=== PATIENT | male | born 1980 | race Caucasian/White ===

== ENCOUNTER 2021-04-30 12:22 | Emergency (ER) | payer SELFPAY ==
--- NOTE | ~2021-04-30 | XR_ITS ---
EXAMINATION: XR wrist RT min 3V EXAM DATE: 04/30/2021 12:39 INDICATION: NKI,Pos Pain Between Radius And Ulna, repetitive Motion. TECHNIQUE: Right wrist frontal, frontal with ulnar deviation, oblique and lateral projections obtain ed and reviewed. There is no prior study for comparison. FINDINGS: Right wrist scapholunate joint space is maintained. There are no bony erosions identified. There are no acute fractures or dislocations identified. There is no subcutaneous gas. The soft tis gloria is unremarkable. There are no radiopaque foreign bodies. IMPRESSION: 1. Unremarkable right wrist exam. Reviewed, dictated and finalized at location A.
--- NOTE | 2021-04-30 12:23 | ED.UPPEXIN ---
HPI - Extremity Injury (Upper) General Chief Complaint: Extremity Injury, Upper Stated Complaint: right wrist pain Time Seen by Provider: 04/30/21 12:22 Source: patient and RN notes reviewed History of Present Illness HPI narrative: Patient is a 41-year-old male who presents the urgent care with complaints of right wrist pain. Patient states is been ongoing for approximately 5 weeks. Patient denies of any injury or trauma to the wrist. 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 States that he noticed increased pain after bull riding a couple weeks ago. Patient has not taken anything [id number] for his pain. No other acute complaints. No acute distress noted. Patient read the plan of care. Some parts of this dictation were generated by voice recognition software and may contain typographical and/or grammatical inaccuracies. Related Data Allergies Allergy/AdvReac Type Severity Reaction Status Date / Time No Known Allergies Allergy Verified 04/30/21 12:37 Review of Systems Review of Systems: CONSTITUTIONAL: Denies fever, chills, or sweats. EYES: Denies visual changes, redness, or discharge. ENT: Denies rhinorrhea, congestion, sore throat, or otalgia. CARDIOVASCULAR: Denies chest pain, palpitations, or edema. RESPIRATORY: Denies cough or dyspnea. GASTROINTESTINAL: Denies abdominal pain, nausea, vomiting, or diarrhea. GENITOURINARY: Denies dysuria or hematuria. SKIN: Denies rash or itching. MUSCULOSKELETAL: Reports of right wrist pain NEUROLOGIC: Denies headache, numbness, or weakness. All other systems reviewed are negative, except as documented in HPI. PMFSH Comments At the time of my signature, I reviewed and agree with the nursing past medical, surgical, social, and family history. There is no relevant family history pertinent to the patient complaint. Exam Narrative: GENERAL: This is a well-nourished, well-developed patient, in no apparent distress. HEAD: normocephalic, atraumatic. EYES: PERRL. Sclera clear/white. Vision is grossly intact. EARS: External ears normal NOSE: External nose normal with no obvious nasal discharge, nares without redness, no rhinorrhea. THROAT: Mucous membranes moist NECK: Neck supple CARDIOVASCULAR: Regular rate and rhythm without murmurs, gallops, or rubs. RESPIRATORY: Clear to auscultation. Breath sounds equal bilaterally. No wheezes, rales, or rhonchi. SKIN: warm, intact with no suspicious lesions or rash, good texture and turgor. NEURO: awake, alert, and oriented to person, place and time. There were no obvious focal neurologic abnormalities. EXTREMITIES: Range of motion to right upper extremity within normal limits. Mild wrist tenderness to the ulnar aspect with very mild edema. No obvious deformity or fracture noted. Positive strong right radial pulse with capillary refill less than 2 seconds. Course Vital Signs Vital signs: Vital Signs Temperature 98.7 F 04/30/21 12:25 Pulse Rate 76 04/30/21 12:25 Respiratory Rate 18 04/30/21 12:25 Blood Pressure 145/77 H 04/30/21 12:25 Pulse Oximetry 99 04/30/21 12:25 Temperature 98.7 F 04/30/21 12:25 Pulse Rate 76 04/30/21 12:25 Respiratory Rate 18 04/30/21 12:25 Blood Pressure 145/77 H 04/30/21 12:25 Pulse Oximetry 99 04/30/21 12:25 Reviewed-patient is informed that they may have pre-hypertension or hypertension based on a blood pressure reading in the department. I recommend the patient call the primary care provider listed on their discharge instructions or a physician of their choice this week to arrange follow-up for further evaluation of possible pre-hypertension or hypertension. MDM - Extremity Injury (Upper) MDM Narrative Medical decision making narrative: Reviewed x-ray results with the patient. He is aware that x-ray was normal without any notable fracture or deformity. Symptoms are likely related to tendinitis due to your repetitive motion for your job. Advised the patient to wear a w
[2021-04-30 12:25] VITALS: BP 145/77; PULSE 76; RESP 18; TEMP 37.1; O2SAT 99
== END 2021-04-30 13:05 | disposition home or self-care (01) ==
PROVIDERS: Emergency Provider Nurse Practitioner Family; PCP Internal Medicine
DX: M77.8 Other enthesopathies, not elsewhere classified (principal)
CPT/HCPCS: 73110; 99213; G0463

== ENCOUNTER 2022-04-19 16:19 | Emergency (ER) | payer OTHER, SELFPAY ==
--- NOTE | 2022-04-19 16:22 | ED.EYEPROB ---
HPI - Eye Problem General Stated complaint: fb in left eye Time Seen by Provider: 04/19/22 16:24 Source: patient and RN notes reviewed History of Present Illness HPI Narrative: Patient is a 41-year-old male who presents the urgent care with his spouse with complaints of possible foreign body to the left eye, sensitivity to light, pain, and vision change. Patient states he was working on his motorcycle, while wearing eye protection, on and has been having issues since then. Patient states he tried to wash out the eye several times. No other acute complaints. Patient aware of the plan of care. Some parts of this dictation were generated by voice recognition software and may contain typographical and/or grammatical inaccuracies. Related Data Allergies Allergy/AdvReac Type Severity Reaction Status Date / Time No Known Allergies Allergy Verified 04/19/22 16:41 Review of Systems Review of Systems: CONSTITUTIONAL: Denies fever, chills, or sweats. EYES: Reports of irritation, pain and possible foreign body to the left eye. Reports of vision change to the left eye ENT: Denies rhinorrhea, congestion, sore throat, or otalgia. CARDIOVASCULAR: Denies chest pain, palpitations, or edema. RESPIRATORY: Denies cough or dyspnea. GASTROINTESTINAL: Denies abdominal pain, nausea, vomiting, or diarrhea. GENITOURINARY: Denies dysuria or hematuria. SKIN: Denies rash or itching. MUSCULOSKELETAL: Denies back pain, joint pain, or myalgia. NEUROLOGIC: Denies headache, numbness, or weakness. All other systems reviewed are negative, except as documented in HPI. [facility] Past Medical History Medical History SLAP lesion of right shoulder Surgical History Surgical History H/O eye surgery H/O medial meniscus repair of left knee H/O repair of left rotator cuff Family History Family History Mother Patient's mother is in good health Father Patient's father is in good health Sibling Patient's brother is in good health Social History Social History Smoking status: Never smoker Second hand tobacco smoke exposure: Yes Alcohol intake: current Drinks per week: 3 Comments At the time of my signature, I reviewed and agree with the nursing past medical, surgical, social, and family history. There is no relevant family history pertinent to the patient complaint. Exam Narrative: GENERAL: This is a well-nourished, well-developed patient, in no apparent distress. HEAD: normocephalic, atraumatic. EYES: Obvious left foreign body with possible penetration at approximately the 5 o'clock position of the iris. Moderately injected left sclera with clear drainage EARS: External ears normal NOSE: External nose normal with no obvious nasal discharge, nares without redness, no rhinorrhea. THROAT: Mucous membranes moist NECK: Neck supple SKIN: warm, intact with no suspicious lesions or rash, good texture and turgor. NEURO: awake, alert, and oriented to person, place and time. There were no obvious focal neurologic abnormalities. EXTREMITIES: No clubbing, cyanosis, or edema. Course Course Level of Care: Express Care Visit Vital Signs Vital signs: Vital Signs Temperature 99.9 F H 04/19/22 16:24 Pulse Rate 60 04/19/22 16:24 Respiratory Rate 20 04/19/22 16:24 Blood Pressure 138/81 04/19/22 16:24 Pulse Oximetry 100 04/19/22 16:24 Oxygen Delivery Room Air 04/19/22 16:24 Temperature 99.9 F H 04/19/22 16:24 Pulse Rate 60 04/19/22 16:24 Respiratory Rate 20 04/19/22 16:24 Blood Pressure 138/81 04/19/22 16:24 Pulse Oximetry 100 04/19/22 16:24 Oxygen Delivery Room Air 04/19/22 16:24 Reviewed Transfer Transfered to: [facility] Hospital Transportation: Other (Private car) Transfer rationale: Forei
[2022-04-19 16:24] VITALS: BP 138/81; PULSE 60; RESP 20; TEMP 37.7; O2SAT 100
== END 2022-04-19 16:50 | disposition short-term general hospital (02) ==
PROVIDERS: Emergency Provider Nurse Practitioner Family; PCP Internal Medicine
DX: T15.92XA Foreign body on external eye, part unspecified, left eye, initial encounter (principal); X58.XXXA Exposure to other specified factors, initial encounter
CPT/HCPCS: 99212; A9270; G0463

== ENCOUNTER 2023-05-07 19:03 | Emergency (ER) | payer BC, SELFPAY ==
[2023-05-07 19:09] VITALS: BP 121/73; PULSE 47; RESP 20; TEMP 35.5; O2SAT 100
--- NOTE | 2023-05-07 19:10 | ED.GENADULT ---
HPI - General Adult General Chief complaint: Urogenital-Male Stated complaint: back and right side pain Source: patient, family and RN notes reviewed History of Present Illness HPI narrative: 43-year-old male presents to urgent care a sore at side. Patient states approximately 2 hours prior to arrival he began having right back and flank pain. Patient denies any history of kidney stones. Patient does state pain radiates around to his abdomen. Patient reports associated nausea. Denies any fevers or vomiting. Related Data Home Medications Medication Instructions Recorded Confirmed dextroamphetamine-amphetamine 20 05/07/23 mg tablet Allergies Allergy/AdvReac Type Severity Reaction Status Date / Time No Known Allergies Allergy Verified 04/30/21 12:37 Review of Systems Review of Systems: CONSTITUTIONAL: Denies fever, chills, or sweats. EYES: Denies visual changes, redness, or discharge. ENT: Denies otalgia and sore throat CARDIOVASCULAR: Denies chest pain, palpitations, or edema. RESPIRATORY: Denies cough or dyspnea. GASTROINTESTINAL: Nausea right-sided abdominal pain GENITOURINARY: Denies dysuria or hematuria. SKIN: Denies rash or itching. MUSCULOSKELETAL: Right lower back and flank pain NEUROLOGIC: Denies headache, numbness, or weakness. Pertinent positives per HPI. PMFSH Comments At the time of my signature, I reviewed and agree with the nursing past medical, surgical, social, and family history. There is no relevant family history pertinent to the patient complaint. Exam Narrative: GENERAL: This is a well-nourished, well-developed patient, curled up on stretcher, appears to be in pain. HEAD: normocephalic, atraumatic. EYES: Sclera clear/white. Vision is grossly intact. EARS: External ears normal, auditory canals clear and without drainage. Hearing grossly intact. NOSE: External nose normal with no obvious nasal discharge, nares without redness, no rhinorrhea. THROAT: Mucous membranes moist, posterior pharynx clear. NECK: Neck supple, non-tender without lymphadenopathy, masses or thyromegaly. CARDIOVASCULAR: Regular rate and rhythm without murmurs, gallops, or rubs. RESPIRATORY: Clear to auscultation. Breath sounds equal bilaterally. No wheezes, rales, or rhonchi. SKIN: warm, intact with no suspicious lesions or rash, good texture and turgor. NEURO: awake, alert, and oriented to person, place and time. There were no obvious focal neurologic abnormalities. EXTREMITIES: No clubbing, cyanosis, or edema. No joint tenderness, effusion, or edema noted. BACK: Tender to to right CVA. Course Course Level of Care: Express Care Visit Vital Signs Vital signs: Reviewed Medical Decision Making MDM Narrative Medical decision making narrative: Discussed reasons why transfer to ER is recommended with pt and visitor and pt agrees to go to [facility] ER. Report called to Parul LEBLANC who accepted pt for Dr. Ortiz. Pt recieved Toradol IM prior to discharge. Pt is stable and going by private vehicle, driven by visitor. Differential Diagnosis Differential Diagnosis: Pyelonephritis, nephrolithiasis, UTI, appendicitis Lab Data Lab results reviewed: Yes I reviewed the patient's lab results. Critical Care Time Critical Care Time Critical Care Time: No Discharge Plan Discharge Clinical Impression: Acute flank pain Patient Disposition: Acute Care Hospital Condition: Stable Prescriptions: No Action dextroamphetamine-amphetamine 20 mg tablet Follow-up/Referrals: PHYSICIAN NOT ON STAFF,NONSTAFF [Primary Care Provider] -
[2023-05-07] MEDS: KETOROLAC 30 MG/ML VIAL (*BKC) 60 MG IM (19:27)
--- NOTE | 2023-05-07 20:13 | PCAUD ---
chart being faxed to [facility] at this time.
== END 2023-05-07 19:40 | disposition short-term general hospital (02) ==
PROVIDERS: Emergency Provider Nurse Practitioner Family
DX: R10.9 Unspecified abdominal pain (principal)
CPT/HCPCS: 81003; 96372; 99213; G0463; J1885

== ENCOUNTER 2025-03-28 17:19 | Emergency (ER) | payer BC, SELFPAY ==
--- OUTSIDE RECORDS SUMMARY | 2025-03-28 17:21 | XMS_ITS | Clinical Summary ---
Author Organization [facility] Address [address], [address] [address] Phone Care Team Providers Care Microbiology Lab Analyst Name Role Phone Zachary Law DO Primary Care Provider [phone] Allergies No known active allergies Medications amphetamine-dex troamphetamine (Adderall) 20 MG Tablet Take 20 mg by mouth 3 times daily. Active tamsulosin (FLOMAX) 0.4 MG Capsule Take 1 Capsule by mouth daily. 10 Capsule 05/07/2023 Active HYDROcodone-moses taminophen (NORCO) 5-325 MG TabletIndicatio ns:Ureterolithi asis Take 1-2 Tablets by mouth every 4 hours as needed for Moderate or more severe pain. 20 Tablet 05/07/2023 Active Immunizations Immunization Administration Dates Next Due TDAP Vaccine 10/12/2020 Social History Tobacco Use Types Packs/Day Years Used Date Smoking Tobacco: Never Smokeless Tobacco: Current Chew Alcohol Use Standard Drinks/Week Comments Never 0 (1 standard drink = 0.6 oz pur e alcohol) Sex and Gender Information Value Date Recorded Sex Assigned at Not on file Legal Sex Male 9:46 PM CDT Gender Identity Not on file Sexual Orientation Not on file Last Filed Vital Signs Vital Sign Reading Time Taken Comments Blood Pressure 124/76 05/07/2023 9:15 PM CDT Pulse 54 05/07/2023 10:45 PM CDT Temperature 36.2 C (97.1 F) 05/07/2023 8:05 PM CDT Respiratory Rate 16 05/07/2023 8:00 PM CDT Oxygen Saturation 96% 05/07/2023 10:45 PM CDT Inhaled Oxygen Concentration - - Weight 81.6 kg (180 lb) 05/07/2023 8:00 PM CDT Height 175.3 cm (5' 9) 05/07/2023 8:00 PM CDT Body Mass Index 26.58 05/07/2023 8:00 PM CDT Plan of Treatment Health Maintenance Due Date Last Done Comments Hepatitis C Virus (HCV) Screening 1980 Hepatitis B Immunization (1 of 3 - 19+ 3-dose series) 1999 Human Papillomavirus (HPV) Immunization (1 - 3-dose SCDM series) 2007 Influenza Immunization (#1) 2025 SARS-COV-2 Immunization ( season) 2025 Td Immunization Every 10 Yea rs (Adults With 1 Tdap) 10/12/2030 10/12/2020 Respiratory Syncytial Virus (RSV) Immunization (Adult) (1 - 1-dose 75+ series) 2055 DTaP/Tdap/Td Immunization Discontinued 10/12/2020 Meningococcal Immunization (ACWY) Aged Out No longer eligible based on patient's age to complete this topic Pneumococcal Immunization Combined Aged Out No longer eligible based on patient's age to complete this topic Rotavirus Immunization Aged Out No lo nger eligible based on patient's age to complete this topic Insurance [employer]ICAID [employer] [facility] [employer]ICAID [employer] Care Teams Microbiology Lab Analyst Relationship Specialty Start Date End Date Zachary Law DO [address] [address] PCP - General Internal Medicine 10/12/20
[2025-03-28 17:23] VITALS: BP 131/87; PULSE 84; RESP 16; TEMP 36.6; O2SAT 99
--- NOTE | 2025-03-28 17:34 | ED.MALEGU ---
HPI - Male Genitourinary General Chief complaint: Urogenital-Male Stated complaint: Urinary Problem Time Seen by Provider: 03/28/25 17:34 Source: patient and RN notes reviewed Mode of arrival: ambulatory Limitations: no limitations History of Present Illness HPI Narrative: 44 y/o male presented with c/o urinary frequency x4 days. Then started with blood in urine x2 days. Denies any pain. Denies nausea, vomiting, abdominal pain, flank pain, constipation, diarrhea, fevers or chills. Pt has hx kidney stones but says this does not feel similar. Increased water intake and started taking cranberry. Chews tobacco. Related Data Allergies Allergy/AdvReac Type Severity Reaction Status Date / Time No Known Allergies Allergy Verified 03/28/25 17:22 Review of Systems Review of Systems: CONSTITUTIONAL: Denies body aches, fever, chills, or sweats. CARDIOVASCULAR: Denies chest pain, palpitations, or edema. RESPIRATORY: Denies cough or dyspnea. GASTROINTESTINAL: Denies abdominal pain, nausea, vomiting, or diarrhea. GENITOURINARY: Reports frequency, urgency, hematuria, denies dysuria, flank pain, discharge SKIN: Denies rash, itching, or wounds. MUSCULOSKELETAL: Denies back pain or myalgia. [facility] Past Medical History Medical History Fracture of left tibia and fibula SLAP lesion of right shoulder ADD (attention deficit disorder) Surgical History Surgical History History of shoulder surgery H/O eye surgery H/O medial meniscus repair of left knee H/O repair of left rotator cuff Family History Family History Mother Patient's mother is in good health Father Patient's father is in good health Sibling Patient's brother is in good health Social History Social History (Updated 03/28/25 @ 17:53 by Nataliia Quinteros APRN) Smoking status: Never smoker Smokeless tobacco user: chewing tobacco Second hand tobacco smoke exposure: Yes Alcohol intake: current Drinks per week: 3 Substance use: current Substance use type: marijuana Comments At time of signature, I have reviewed and agree with nursing past medical, surgical, social and family history unless otherwise noted. Please see nursing chart for further information. There is no relevant family history pertinent to the presenting complaint Exam Narrative: GENERAL: Well-appearing and in no acute distress. ENT: Mucous membranes pink and moist. NECK: Normal AROM. Supple. CHEST: No respiratory distress. Clear to auscultation. HEART: Regular rate and rhythm. ABDOMEN: Soft, nontender, nondistended, normal active bowel sounds. No CVA tenderness SKIN: Warm, dry NEURO: No focal deficits. Alert and oriented x3. Gait steady. PSYCH: Normal affect. Course Course Emergency Course: Patient is aware of diagnosis, understands and agrees to treatment plan. Anticipatory guidance given. Patient agrees to follow-up as directed and is aware of reasons to seek care at the emergency department. Portions of this record may have been created with voice recognition software Level of Care: Express Care Visit Vital Signs Vital signs: Vital Signs Temperature 98 F 03/28/25 17:23 Pulse Rate 84 03/28/25 17:23 Respiratory Rate 16 03/28/25 17:23 Blood Pressure 131/87 03/28/25 17:23 Pulse Oximetry 99 03/28/25 17:23 Oxygen Delivery Room Air 03/28/25 17:23 Temperature 98 F 03/28/25 17:23 Pulse Rate 84 03/28/25 17:23 Respiratory Rate 16 03/28/25 17:23 Blood Pressure 131/87 03/28/25 17:23 Pulse Oximetry 99 03/28/25 17:23 Oxygen Delivery Room Air 03/28/25 17:23 Reviewed MDM - Male Genitourinary MDM Narrative Medical decision making narrative: Discussed physical exam findings and urine dip POS leuk, nit, blood, pro. Will culture. Discussed at length the risk of painless hematuria and the importance of close f/u with pcp, states he will call in the morning.Will send abx at this time. Advised supportive measures and signs/symptoms to go to the ER. Pt is appropriate for outpt treatment and f/u. Differential Diagnosis Differential diagnosis: Likely urinary tract infection, urethritis and other (bladder tumor, cystitis, renal stones) Discharge Plan Discharge Clinical Impression: Urinary frequency Patient Disposition: Home Condition: Stable Instructions: Antibiotic Form, Hematuria (ED) Additional Instructions: Take the antibiotic as prescribed The urine will be sent of for a culture to identify if bacteria is causing your infection. If the culture shows that the antibiotic will not get rid of the infection, you will be notified and a new antibiotic will be called in for you. Increase water intake We discussed risks of blood in urine, please follow up with PCP. you will need to follow up with your PCP, call tomorrow to schedule an appointment. Go to the ER for any worsening symptoms or concerns Patient Language: Cambodian Prescriptions: New ciprofloxacin HCl [Cipro] 500 mg tablet 500 mg PO Q12H 5 Days Qty: 10 0RF No Action dextroamphetamine-amphetamine 20 mg tablet 20 mg PO TID Qty: 90 0RF Follow-up/Referrals: German Barrett MD [Primary Care Provider, Family Practice] Time of Disposition: 17:48
[2025-03-28 17:52] LABS: EDUAAPPEAR Cloudy; EDUABILI Negative (Negative); EDUABLOOD 2+ (Negative); EDUACOLOR1 Tea Colored; EDUAGLUCOSE Negative (Negative); EDUAKETONE Negative (Negative); EDUALEUKO 1+ (Negative); EDUANITRATE Positive (Negative); EDUAPH 6.0; EDUAPROTEIN 3+ (Negative); EDUASPGRAVITY 1.030; EDUAUROBILI 0.2
== END 2025-03-28 17:52 | disposition home or self-care (01) ==
PROVIDERS: Emergency Provider Nurse Practitioner Family; PCP Family Medicine
DX: R35.0 Frequency of micturition (principal); F17.220 Nicotine dependence, chewing tobacco, uncomplicated; F12.90 Cannabis use, unspecified, uncomplicated; F98.8 Other specified behavioral and emotional disorders with onset usually occurring in childhood and adolescence
CPT/HCPCS: 81003; 87077; 87086; 87186; 99213; G0463